=== PATIENT | female | born 1975 | race Caucasian/White ===

== ENCOUNTER → 2023-09-03 13:33 | Outpatient (REF) | payer OTHER, SELFPAY | LOC: HWWDC 13:33 | PROVIDERS: ATTENDING PHYSICIAN Nurse Practitioner Family | DX: Z12.31 Encounter for screening mammogram for malignant neoplasm of breast (principal) | CPT/HCPCS: 77063; 77067 ==

== ENCOUNTER → 2023-11-12 06:42 | Day surgery (SDC) | payer OTHER, SELFPAY | LOC: GI 06:42 | PROVIDERS: ATTENDING PHYSICIAN Internal Medicine Gastroenterology; FAMILY PHYSICIAN Family Medicine | DX: D12.5 Benign neoplasm of sigmoid colon (principal); K57.30 Diverticulosis of large intestine without perforation or abscess without bleeding; K64.8 Other hemorrhoids; D50.9 Iron deficiency anemia, unspecified; Q43.8 Other specified congenital malformations of intestine; K31.89 Other diseases of stomach and duodenum | CPT/HCPCS: 45385; 43239; 88305; 88342 ==